=== PATIENT | female | born 1955 | race Caucasian/White ===

== ENCOUNTER 2019-10-06 07:37 | Emergency (ER) | payer BC, MEDICARE ==
--- OUTSIDE RECORDS SUMMARY | 2019-10-06 07:44 | XMS REPORT | Continuity of Care Document ---
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 Medicine Problems Description No Information Available Social History Type Date Description Comments Sex Unknown Tobacco Use Start: Unknown End: Unknown Patient is a former smoker quit 1994 Allergies, Adverse Reactions, Alerts Active Allergies Reaction Severity Comments Date Isoniazid Anaphylaxis Severe 09/29/2014 Doxycycline Nausea and Vomiting Moderate 09/29/2014 Medications Active Medications SIG Qnty Indications Ordering Provider Date Claritin 1 by mouth every 20caps Unknown 10mg Capsules day prn Ibuprofen as needed Unknown 200mg Capsules Medications Administered in Office Medication SIG Qnty Indications Ordering Provider Date No Injection Jayy Keita M.D. 05/03/2016 Injection Immunizations Description No Information Available Vital Signs Date Vital Result Comment 05/23/2017 9:57am Height 64 inches 5'4" - per pt Weight 135.00 lb per pt BP Systolic 118 mmHg BP Diastolic 72 mmHg Respiratory Rate 14 /min Pain Level 1 BMI (Body Mass Index) 23.2 kg/m2 01/03/2017 11:45am Height 64 inches 5'4" Weight 132.00 lb Heart Rate 80 /min BP Systolic 118 mmHg BP Diastolic 74 mmHg Respiratory Rate 14 /min Body Temperature 97.2 F Pain Level 1 BMI (Body Mass Index) 22.7 kg/m2 Results Description No Information Available Procedures Description No Information Available Medical Devices Description No Information Available Encounters Type Date Location Provider Dx Diagnosis Office Visit 06/03/2019 [facility] Jay Jay Chapin MD L82.1 Other seborrheic 9:10a keratosis D22.5 Melanocytic nevi of trunk Assessments Date Code Description Provider 06/03/2019 L82.1 Other seborrheic keratosis Jay Jay Chapin MD 06/03/2019 D22.5 Melanocytic nevi of trunk Jay Jay Chapin MD Plan of Treatment 05/23/2017 - Jayy Keita M.D.S82.852D Displaced trimalleolar fracture of left lower leg, subsequent encounter for closed fracturewith routine healingFollow up:As needed Functional Status Description No Information Available Mental Status Description No Information Available Referrals Description No Information Available
[2019-10-06 07:53] VITALS: BP 144/80
--- NOTE | 2019-10-06 08:14 | UC ---
Respiratory Complaint HPI - HPI Summary HPI Summary: dyspnea x 1 day sudden onset , symptoms were severe , lasted about one min woke her up from sleep , had sever sob, wheezing, could not talk had chest congestion/ nasal congestion for few days no fever, no chills, no chest pain - History of Current Complaint Chief Complaint: UCGeneralIllness Stated Complaint: RESP COMPLAINT Time Seen by Provider: 10/06/19 07:43 Hx Obtained From: Patient Onset/Duration: Sudden Onset, Lasting Minutes - 1, Resolved Timing: Intermittent Episodes - lasting a min Severity Initially: Severe Severity Currently: None Pain Intensity: 0 Character: Cough: Nonproductive Aggravating Factors: Nothing Associated Signs And Symptoms: Positive: Dyspnea, URI, Nasal Congestion. Negative: Fever, Chills, Pleuritic Chest Pain, Wheezing, Hemoptysis, Dizziness, Calf Pain, Calf Swelling, Hoarseness, Sinus Discomfort - Allergies/Home Medications Allergies/Adverse Reactions: Allergies Allergy/AdvReac Type Severity Reaction Status Date / Time isoniazid Allergy Severe Airway Verified 10/06/19 07:55 Obstruction doxycycline Allergy Intermediate Nausea Verified 10/06/19 07:54 DRIED ONIONS Allergy HEADACHES Uncoded 10/06/19 07:55 HAY FEVER Allergy UNCODED Uncoded 10/06/19 07:55 PMH/Surg Hx/FS Hx/Imm Hx Previously Healthy: Yes Other History Of: Negative For: Anticoagulant Therapy - Surgical History Surgical History: Yes Surgery Procedure, Year, and Place: ORIF left ankle - Family History Known Family History: Positive: Non-Contributory Negative: Blood Disorder - Social History Alcohol Use: Daily Alcohol Amount: 2 BEERS DAILY Substance Use Type: None Smoking Status (MU): Former Smoker Amount Used/How Often: 1 1/2 PPD X 15 YEARS Have You Smoked in the Last Year: No When Did the Patient Quit Smoking/Using Tobacco: 1994 Review of Systems All Other Systems Reviewed And Are Negative: Yes Is Patient Immunocompromised?: No Physical Exam Triage Information Reviewed: Yes Appearance: Well-Appearing, No Pain Distress, Well-Nourished Vital Signs: Initial Vital Signs Temp 98.1 F 10/06/19 07:48 Pulse 88 10/06/19 07:48 Resp 19 10/06/19 07:48 BP 144/80 10/06/19 07:48 Pulse Ox 100 10/06/19 07:48 Vital Signs Reviewed: Yes Eye Exam: Normal Eyes: Positive: Conjunctiva Clear ENT: Positive: Normal ENT inspection, Hearing grossly normal, Pharynx normal Neck: Positive: Supple, Nontender, No Lymphadenopathy Respiratory: Positive: Chest non-tender, Lungs clear, Normal breath sounds Cardiovascular: Positive: RRR, No Murmur, Pulses Normal Skin Exam: Normal Respiratory Course/Dx - Differential Dx/Diagnosis Provider Diagnosis: Mucus plugging of bronchi Discharge ED - Sign-Out/Discharge Documenting (check all that apply): Patient Departure All imaging exams completed and their final reports reviewed: No Studies - Discharge Plan Condition: Stable Disposition: HOME Patient Education Materials: Guaifenesin (By mouth), Upper Respiratory Infection (ED) Referrals: Lila Ghosh MD [Primary Care Provider] - If Needed - Billing Disposition and Condition Condition: STABLE Disposition: Home
== END 2019-10-06 08:14 | disposition home or self-care (01) ==
LOC: UCEAST 07:37
DX: J98.09 Other diseases of bronchus, not elsewhere classified (principal); R06.00 Dyspnea, unspecified; R06.02 Shortness of breath; R06.2 Wheezing; R09.89 Other specified symptoms and signs involving the circulatory and respiratory systems; Z87.891 Personal history of nicotine dependence; Z88.1 Allergy status to other antibiotic agents; Z91.09 Other allergy status, other than to drugs and biological substances; Z91.018 Allergy to other foods
CPT/HCPCS: 99211; G0463